=== PATIENT | male | born 1975 | race Caucasian/White ===

== ENCOUNTER → 2016-10-12 | Day surgery (SDC) | payer OTHER ==
[~2016-10-12] VITALS: Ht 157.5 cm; Wt 95.3 kg
== END ==
LOC: OPS 10:56
PROC: 0DJD8ZZ Inspection of Lower Intestinal Tract, Via Natural or Artificial Opening Endoscopic (ICD-10-PCS; principal; 2016-10-12)
DX: K64.8 Other hemorrhoids (principal); K62.5 Hemorrhage of anus and rectum; R10.32 Left lower quadrant pain; J45.909 Unspecified asthma, uncomplicated; F41.9 Anxiety disorder, unspecified; F31.9 Bipolar disorder, unspecified; N28.1 Cyst of kidney, acquired; I10 Essential (primary) hypertension; R00.2 Palpitations; G25.81 Restless legs syndrome; G47.33 Obstructive sleep apnea (adult) (pediatric); K59.00 Constipation, unspecified; Z88.8 Allergy status to other drugs, medicaments and biological substances; Z79.899 Other long term (current) drug therapy
CPT/HCPCS: 94664; 99070; J2704